=== PATIENT | female | born 1960 | race African-American/Black ===

== ENCOUNTER 2019-07-14 14:34 | Emergency (ER) | payer OTHER ==
[~2019-07-14] VITALS: Ht 127 cm; Wt 59.0 kg
[2019-07-14] MEDS ORDERED: ULTRAM 50MG TAB50 MG PO (16:05)
[2019-07-14] MEDS ORDERED: MEDROLDOSEPACK PO (16:05)
[2019-07-14] MEDS ORDERED: EC-NAPROSYN375 MG PO (16:05)
[2019-07-14] MEDS ORDERED: NORFLEX100 MG PO (16:05)
[2019-07-14 17:05] VITALS: BP 165/91
== END 2019-07-14 17:05 | disposition home or self-care (01) ==
LOC: ER 14:34
DX: M54.31 Sciatica, right side (principal); M54.89 Other dorsalgia; Z88.6 Allergy status to analgesic agent; Z88.8 Allergy status to other drugs, medicaments and biological substances; Z90.710 Acquired absence of both cervix and uterus